=== PATIENT | male | born 1995 | race Caucasian/White ===

== ENCOUNTER 2016-09-25 17:42 | Emergency (ER) | payer OTHER ==
[~2016-09-25] VITALS: Ht 177.8 cm; Wt 86.2 kg
[~2016-09-25 17:42] MED LIST: ADDERAL; HYDR-3874 PO
--- OUTSIDE RECORDS SUMMARY | 2016-09-25 17:46 | XMS REPORT | Continuity of Care Document ---
Author Author [facility] Organization [facility] Address Unknown Phone Unavailable Care Team Providers Care Ultrasound Manager Name Role Phone NORMA MCCOY MD PCP Insurance Providers Payer Name Policy Number Subscriber Name Relationship [facility] [place] [id number] Beatriz Nunes 18 Self / Same As Patient Chief Complaint and Reason for Visit Chief Complaint Trauma-Non Activation Reason for Visit contusion and abrasion right hand Problems No problem information available. Medications Current Home Medications Medication Dose Units Route Directions Days/Qty Instructions Start Date [Adderal] 06/06/16 Hydrocodone/Acetaminophen 1 Each 1-2 Each Oral Every 4HRS as needed for Pain 14 06/06/16 Social History Social History Problem Response Recorded Date/Time Recent Foreign Travel No 06/06/2016 9:26am Recent Infectious Disease Exposure No 06/06/2016 9:26am Hospitalization with Isolation Denies 06/06/2016 9:26am Recent Hopitalizations No 06/06/2016 9:33am Hospitalization with Isolation Denies 06/06/2016 9:26am Hospital Discharge Instructions No hospital discharge instructions. Plan of Care Discharge Date 06/06/16 10:20am Disposition 01 HOME, SELF-CARE Condition at Discharge Stable Instructions/Education Provided Skin Abrasions (DC) Prescriptions See Medication Section Referrals NORMA MCCOY MD - Primary Care Physician Functional Status No functional status results. Allergies, Adverse Reactions, Alerts No known allergies. Immunizations Name Given Type DTaP-Tetanus, Dipth, Pertuss P/F (Boostrix) 06/06/16 Administered Vital Signs Acute Vital Signs Vital Response Date/Time Temperature (Fahrenheit) 97.8 degrees F (97.6 - 99.5) 06/06/2016 9:26am Temperature (Calculated Celsius) 36.34935 degrees C (36.4 - 37.5) 06/06/2016 9:26am Temperature Source Temporal 06/06/2016 9:26am Pulse Rate (adult) 82 bpm (60 - 90) 06/06/2016 9:26am Respiratory Rate 18 bpm (12 - 24) 06/06/2016 9:26am O2 Sat by Pulse Oximetry 99 % (88 - 100) 06/06/2016 9:26am Blood Pressure 140/90 mm Hg 06/06/2016 9:26am Blood Pressure Mean 107 mm Hg 06/06/2016 9:26am Pain Numeric Pain Scale 6 06/06/2016 9:26am Height (Feet) 5 feet 06/06/2016 9:26am Height (Inches) 10 inches 06/06/2016 9:26am Height (Calculated Centimeters) 177.331776 cm 06/06/2016 9:26am Weight (Pounds) 185 pounds 06/06/2016 9:26am Weight (Calculated Kilograms) 83.189770 kilograms 06/06/2016 9:26am Capillary Refill Capillary Refill Less Than 3 Seconds 06/06/2016 9:26am Height 5 ft 10 in Weight 185 lb Body Mass Index 26.5 kg/m^2 Results No known relevant diagnostic tests, laboratory data and/or discharge summary. Procedures No known history of procedures. Encounters Encounter Location Arrival/Admit Date Discharge/Depart Date Attending Provider Departed Emergency Room [facility] 06/06/16 9:15am 06/06 10:20am JOSE M SR MD Registered Clinic [facility] 05/24/16 10:29am FILIPPO MUNGUIA Recent Diagnosis
[2016-09-25] MEDS ORDERED: IBUPROFEN TABLET 200 MG TAB PO STA (21:11)
[2016-09-25] MEDS ORDERED: TRAM50TA2 PO (21:17)
--- NOTE | 2016-09-25 21:18 | ED Lower Extremity ---
General Chief Complaint: Lower Extremity Stated Complaint: R LEG CALF INJ Nursing Triage Note: sTATED WAS PLAYING FOOTBALL. WAS RUNNING AND FELT PO AND A CLINCH TO THE BACK OF RT THIGH. INCREASE PAIN WITH MOVEMENT Nursing Sepsis Screen: No Definite Risk History of Present Illness Time seen by provider: 21:00 Initial Comments evaluation for right hamstring pain, felt pop while running during football game. denies previous injury to his right lower extremity. Pain/Injury Location: right leg (mid to upper one third of hamstring) Method of Injury: sports injury Modifying Factors: Improves With Immobilization, Improves With Rest Allergies and Home Medications Allergies Coded Allergies: No Known Drug Allergies (Unverified , 09/25/16) Home Medications (Reported) Tramadol HCl 50 Mg Tablet #10 50 MG PO Q8H PRN PRN PAIN Prescribed by: OLGA MADDEN on 09/25/162116 Constitutional: no symptoms reported see HPI EENTM: no symptoms reported see HPI Respiratory: no symptoms reported see HPI Cardiovascular: no symptoms reported see HPI Gastrointestinal: no symptoms reported see HPI Genitourinary: no symptoms reported see HPI Musculoskeletal: no symptoms reported see HPI Skin: no symptoms reported see HPI Psychiatric/Neurological: No Symptoms Reported See HPI All Other Systems Reviewed Negative Unless Noted: Yes Past Vhaxzvn-Actvbh-Kvwinm Hx Patient Social History Alcohol Use: Occasionally Uses Recreational Drug Use: No Smoking Status: Never a Smoker 2nd Hand Smoke Exposure: No Recent Foreign Travel: No Contact w/Someone Who Travel: No Recent Infectious Disease Expo: No Recent Hopitalizations: No Immunizations Up To Date Tetanus Booster (TDap): Less than 5yrs Seasonal Allergies Seasonal Allergies: No Surgeries HX Surgeries: Yes Surgeries: Eye Surgery, Tonsillectomy Respiratory Hx Respiratory Disorders: No Cardiovascular Hx Cardiac Disorders: No Neurological Hx Neurological Disorders: No Reproductive System Hx Reproductive Disorders: No Genitourinary Hx Genitourinary Disorders: No Gastrointestinal Hx Gastrointestinal Disorders: No Musculoskeletal Hx Musculoskeletal Disorders: No Endocrine Hx Endocrine Disorders: No HEENT HX ENT Disorders: No Cancer Hx Cancer: No Psychosocial Hx Psychiatric Problems: Yes Behavioral Health Disorders: ADD/ADHD, Depression Reviewed Nursing Assessment Reviewed/Agree w Nursing PMH: Yes Physical Exam Vital Signs Vital Sign - Last 12Hours 09/25/16 17:54 Pulse 111 Resp 18 B/P 109/83 Pulse Ox 98 Capillary Refill : Less Than 3 Seconds General Appearance: WD/WN no apparent distress HEENT: PERRL/EOMI normal ENT inspection Neck: non-tender full range of motion normal inspection Cardiovascular: normal peripheral pulses regular rate, rhythm no murmur Respiratory: chest non-tender lungs clear normal breath sounds Hips: bilateral hip non-tender, bilateral hip normal inspection, bilateral hip normal range of motion Legs: bilateral leg normal inspection, bilateral leg normal range of motion, right leg pain, right leg soft tissue tenderness (middle to upper one third of the right hamstring) Knees: bilateral knee non-tender, bilateral knee normal inspection, bilateral knee normal range of motion, bilateral knee no evidence of injury Ankles: bilateral ankle non-tender, bilateral ankle normal inspection, bilateral ankle normal range of motion Neurologic/Psychiatric: no motor/sensory deficits alert normal mood/affect oriented x 3 Skin: normal color warm/dry Comments patient able to ambulate with a normal heel toe gait, power V/V toe and heel walking. Resisted Hamstring flexion and extension V/V. no defect inspected palpated in the right hamstring. no pain proximal or distal insertion site to the right hamstring. Full range of motion, on painful to the right knee, right ankle and right hip. Progress/Results/Core Measures Results/Orders My Orders Orders-OLGA MADDEN Ibuprofen Tablet (Motrin Tablet) (09/25/16 21:11) Tramadol Tablet (Ultram Tablet) (09/25/16 21:11) Vital Signs/I&O Vital Sign - Last 12Hours 09/25/16 17:54 Pulse 111 Resp 18 B/P 109/83 Pulse Ox 98 Blood Pressure Mean: 92 Departure Impression Impression: Primary Impression: Hamstring strain Qualified Code: S76.311A - Strain of muscle, fascia and tendon of the posterior muscle group at thigh level, right thigh, initial encounter Disposition: HOME, SELF-CARE Condition: Stable Departure-Patient Inst. Decision time for Depature: 21:10 Referrals: NORMA MCCOY MD (PCP/Family) Primary Care Physician Patient Instructions: Hamstring Muscle Strain (DC), Hamstring Stretches Add. Discharge Instructions: All discharge instructions reviewed with patient and/or family. Voiced understanding. Ice to right hamstring 20 min every 2 hours, may alternate with warm, moist towel. Gentle hamstring stretches, no running or weights for right lower extremity. Follow up at [email or web address] in 3-4 days. In two weeks may start stationary bike. Ibuprofen 600 mg every 8 hours with food. Scripts Tramadol HCl 50 Mg [id number] Mg PO Q8H PRN PAIN #10 TAB Ref 0 Prov:OLGA MADDEN 09/25/16 Copy Copies To 1: BACILIO DOBBINS MD Copies To 2: NORMA MCCOY MD, AMY ARNP Sep 25, 2016 21:17
[2016-09-25 21:30] VITALS: BP 120/74
== END 2016-09-25 21:30 | disposition home or self-care (01) ==
LOC: EDUNIT# 17:42 → ER 17:43
DX: S76.311A Strain of muscle, fascia and tendon of the posterior muscle group at thigh level, right thigh, initial encounter (principal); X50.9XXA Other and unspecified overexertion or strenuous movements or postures, initial encounter; Y93.61 Activity, american tackle football; Y99.8 Other external cause status
CPT/HCPCS: 99283